=== PATIENT | male | born 1960 | race Caucasian/White ===

== ENCOUNTER 2025-01-15 02:42 | Day surgery (SDC) | payer OTHER, SELFPAY ==
[2025-01-04 13:42] VITALS: BMI 26.6
--- OUTSIDE RECORDS SUMMARY | 2025-01-15 02:44 | XMS_ITS | Clinical Summary ---
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 Gender Identity Not on file Sexual Orientation Not on file Plan of Treatment Health Maintenance Due Date Last Done Comments Hepatitis C Virus (HCV) Screening 1960 TdaP Immunization 1962 Cologuard 07/27/2007 Colonoscopy 07/27/2007 Colorectal Cancer Screening 07/27/2007 Immunochemical Fecal Occult Blood 07/27/2007 Pneumococcal Immunization (5 0+ years) (1 of 1 - PCV) 2012 Zoster Immunization (1 of 2) 2012 Influenza Immunization (#1) 2024 SARS-COV-2 Immunization (3 - 2024- season) 2024 07/15/2020, 06/11/2020 Respiratory Syncytial Virus (RSV) Immunization (Adult) (1 - 1-dose 75+ series) 2037 Hepatitis B Immunization Aged Out No longer eligible based on patient's age to complete this topic Human Papillomavirus (HPV) Immunization Aged Out No longer eligible b ased on patient's age to complete this topic Meningococcal Immunization (ACWY) Aged Out No longer eligible b ased on patient's age to complete this topic Rotavirus Immunization Aged Out No lo nger eligible based on patient's age to complete this topic
--- OUTSIDE RECORDS SUMMARY | 2025-01-15 02:44 | XMS_ITS | Clinical Summary ---
Author Organization [facility] [employer] logo Address [address] [place] [address] Care Team Providers Care Community Advocate Name Role Phone Kameron Yousif MD Primary Care Provider [phone] Source Comments [facility] [employer] logo,non-owned Affiliates and Associated Physician Practices is amultiple site organization consisting of ambulatory clinics and hospital sitesin [place], [place], [place] and [place]. This disclosure is being madepursuant to the Care Everywhere program and may not contain all information available regarding this patient. Last updated 17.[facility] [employer] Allergies Active Allergy Reactions Criticality Noted Date Comments Penicillins Other Low 01/06/2014 Unsure, told as a child not to take Medications * Be aware that medications may not be up to date on this document. Alwaysverify current medications with the patient. Multiple Vitamin Take by mouth DAILY. 04/30/2016 Active Florence-3 Fatty Acids (FISH OIL) 500 MG capsule Take by mouth DAILY. 04/30/2016 Active Active Problems Problem Noted Date Diagnosed Date Other seborrheic keratosis 05/06/2017 Other melanin hyperpigmentation 05/01/2016 Tinea pedis 05/01/2016 Melanocytic nevi of trunk 05/01/2016 Tinea unguium 05/01/2016 Other pruritus 05/06/2014 Other rosacea 05/06/2014 Immunizations Immunization Administration Dates Next Due TDAP, HISTORIC VACCINE 06/23/2021 Family History Medical History Relation Name Comments CAD (Coronary Artery Disease) Brother Diabetes - Type 2 Brother Cancer - Other Mother Cancer - Skin, Melanoma Neg Hx Cancer - Skin, Non Melanoma Neg Hx Eczema Neg Hx Psoriasis Neg Hx Relation Name Status Comments Brother Mother Social History Tobacco Use Types Packs/Day Years Used Date Smoking Tobacco: Never Smokeless Tobacco: Never Tobacco Cessation:Counseling Given: Not Answered Alcohol Use Standard Drinks/Week Comments Yes 12 (1 standard drink = 0.6 oz pu re alcohol) Sex and Gender Information Value Date Recorded Sex Assigned at Not on file 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 Gender Identity Not on file Sexual Orientation Not on file Last Filed Vital Signs Vital Sign Reading Time Taken Comments Blood Pressure 132/92 06/19/2022 3:47 PM CDT Pulse 62 06/19/2022 3:47 PM CDT Temperature - - Respiratory Rate - - Oxygen Saturation - - Inhaled Oxygen Concentration - - Weight 88.1 kg (194 lb 3.2 oz) 06/19/2022 3:47 P M CDT Height 175.3 cm (5' 9) 06/19/2022 3:47 PM CDT Body Mass Index 28.68 06/19/2022 3:47 PM CDT Plan of Treatment Health Maintenance Due Date Last Done Comments COLOGUARD (AGES 45-75) - COL ON CA SCREENING 1962 COLON MONITORING 1962 COLONOSCOPY - COLON CA SCREENING 1962 CT COLONOGRAPHY - COLON CA SCREENING 1962 Colorectal Cancer Screening 1962 FIT - COLON CA SCREENING 1962 FLEX SIG - COLON CA SCREENING 1962 LIPID TESTING 1962 HIV SCREENING 1977 HEPATITIS C SCREENING 07/21/1980 PNEUMOCOCCAL VACCINE 50+ (1 of 1 - PCV) 2012 ZOSTER VACCINE (1 of 2) 2012 DEPRESSION SCREENING 03/04/2024 COVID-19 VACCINE (3 - 2024-2 6 season) 2024 07/15/2020, 06/11/2020 INFLUENZA VACCINE (#1) 2024 DTAP/TDAP/TD VACCINES (2 - T d or Tdap) 06/24/2031 06/23/2021 Respiratory Syncytial Virus (RSV) Vaccine Pt: or over 60 yrs (1 - 1-dose 75+ series) 2037 HEPATITIS B VACCINE Aged Out No longe r eligible based on patient's age to complete this topic HIB VACCINE Aged Out No longer eligi ble based on patient's age to complete this topic HPV VACCINE Aged Out No longer eligi ble based on patient's age to complete this topic MENINGOCOCCAL (Group B) VACCINE SHARED DECISION-MAKING Aged Out No longer eligible based on patient's age to complete this topic MENINGOCOCCAL GROUPS A/C/Y/W VACCINE Aged Out No longer eligible b ased on patient's age to complete this topic Insurance [employer] Care Teams Community Advocate Relationship Specialty Start Date End Date Kameron oYusif MD [address] [place] [address] PCP - General 05/02/22
--- OUTSIDE RECORDS SUMMARY | 2025-01-15 02:44 | XMS_ITS | Clinical Summary ---
Author Organization [facility] Address [address] [address] Care Team Providers Care Rn Testing Name Role Phone Shayy Arriola MD Primary Care Provider + Allergies Active Allergy Reactions Criticality Noted Date Comments Penicillins Active Problems Problem Noted Date Diagnosed Date Chalazion 08/23/2010 Unspecified inflammation of eyelid 08/23/2010 Social History Tobacco Use Types Packs/Day Years Used Date Smoking Tobacco: Never Personal Safety Answer Date Recorded Getting School Help Needed Not on file 05/17 Sex and Gender Information Value Date Recorded Sex Assigned at Not on file 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 Gender Identity Not on file Sexual Orientation Not on file Plan of Treatment Health Maintenance Due Date Last Done Comments Colon Cancer Screening-Colonoscopy 1962 Depression Screening 1962 Hepatitis C Screening 1962 Prostate Cancer Screening-PSA 1962 Hepatitis B Screening 1980 Regular Well Visit/Exam 18-64 1980 Zoster Vaccine (1 of 2) 2012 Covid-19 Vaccine (3 - 2024-2 6 season) 2024 07/15/2020, 06/11/2020 Influenza Vaccine (#1) 2024 DTaP/Tdap/Td Vaccine (2 - Td or Tdap) 06/24/2031 06/23/2021 Pneumococcal vaccine <65 Aged Out No longer eligible based on patient's age to complete this topic Insurance [facility] [id number] [facility] [id number] Care Teams Rn Testing Relationship Specialty Start Date End Date Shayy Arriola MD PCP - General Hospice and Palliative Medicine 12/24/22
[2025-01-15 07:40] VITALS: BP 143/84; PULSE 64; RESP 20; TEMP 36.2; O2SAT 97; BMI 27.3
--- NOTE | 2025-01-15 07:50 | WPDANESEPPF ---
Anes - Initial Pre Proc Eval Procedure: Operation Date: 01/15/25 08:30 Proposed Procedures p Screening Colonoscopy - Mario Guajardo MD Date/Time: 01/15/25 07:50 Surgeon: Mario Guajardo MD Pre Op Diagnosis: Encounter for screening for malignant neoplasm of Patient Data Age: 64 Gender: M Height: 1.75 m Weight: 84.2 kg Last Vital Signs Temp 36.2 C L 01/15/25 07:40 Pulse 64 01/15/25 07:40 Resp 20 01/15/25 07:40 BP 143/84 H 01/15/25 07:40 Pulse Ox 97 01/15/25 07:40 O2 Del Method Room Air 01/15/25 07:40 Allergies Allergy/AdvReac Type Severity Reaction Status Date / Time erythromycin base Allergy Unknown Upset Verified 01/15/25 07:39 stomach Penicillins Allergy Unknown Pt does Verified 01/15/25 07:39 not remember reaction Home Medications ?Medication ?Instructions ?Recorded ?Confirmed ?Type multivitamin (Daily Multi-Vitamin 1 tablet PO DAILY 01/04/25 01/15/25 History tablet) omega 8-jek-zul-fish oil 1,000 mg 1 cap PO DAILY 01/04/25 01/15/25 History (120 mg-180 mg) capsule (Fish Oil) sodium,potassium,mag sulfates 17.5 See Rx Instructions PO .COMPLEX 01/04/25 Rx gram-3.13 gram-1.6 gram oral soln #354 mL (Suprep Bowel Prep Kit) Patient hx anesthesia problems: none Family hx anesthesia problems: none Results Review: All pre-operative results and documents have been reviewed as part of the pre-operative evaluation. [facility] Past Medical History Medical History (Updated 01/15/25 @ 07:51 by Juanito Grewal MD) Overweight Family History Family History Sibling Diabetes mellitus Hypertension Father Family history of alcoholism Mother Family history of malignant neoplasm of breast in first degree relative Social History Social History Smoking status: Never smoker Alcohol intake: current Drinks per week: 10 Substance use type: does not use Living arrangements: with family Spiritual care concerns: No Anes - Eval Final PreProcedure Day of Procedure 01/15/25 07:50 Patient weight: overweight Heart: regular rate and rhythm Lungs: clear to auscultation Airway: Mallampati scale class II Neurological: alert and oriented Last oral intake: >/= 8 hours ASA classification: II Emergent: no Anesthetic plan: proceed Anesthesia type and monitoring: general GIVS and standard monitoring Results Review: All pre-operative results and documents have been reviewed as part of the pre-operative evaluation. Informed Consent: The patient's anesthetic plan and its attendant risks and benefits were discussed with the patient/family/POA. Questions were solicited and answers provided to the satisfaction of the patient/family/POA.
[2025-01-15] MEDS: LACTATED RINGERS 1,000 ML 150 ML IV CONT (07:52)
--- NOTE | 2025-01-15 08:21 | PM.HPGS ---
History of Present Illness History of Present Illness Consent: Risks, benefits, and alternatives have been discussed and questions answered. Patient agrees to proceed with procedure. Chief complaint: Encounter for screening for malignant neoplasm of Narrative: Jayme Dillard is a 64 year old male with last colonoscopy in 2014 Review of Systems Review of Systems: All systems reviewed & are unremarkable except as noted in HPI and below PMFSH Past Medical History Medical History (Updated 01/15/25 @ 08:21 by Mario Guajardo MD) Colon cancer screening Overweight Family History Family History Sibling Diabetes mellitus Hypertension Father Family history of alcoholism Mother Family history of malignant neoplasm of breast in first degree relative Social History Social History Smoking status: Never smoker Alcohol intake: current Drinks per week: 10 Substance use type: does not use Living arrangements: with family Spiritual care concerns: No Meds Home Medications and Allergies Home Medications ?Medication ?Instructions ?Recorded ?Confirmed ?Type multivitamin (Daily Multi-Vitamin 1 tablet PO DAILY 01/04/25 01/15/25 History tablet) omega 1-agk-zjk-fish oil 1,000 mg 1 cap PO DAILY 01/04/25 01/15/25 History (120 mg-180 mg) capsule (Fish Oil) sodium,potassium,mag sulfates 17.5 See Rx Instructions PO .COMPLEX 01/04/25 Rx gram-3.13 gram-1.6 gram oral soln #354 mL (Suprep Bowel Prep Kit) Allergies Allergy/AdvReac Type Severity Reaction Status Date / Time erythromycin base Allergy Unknown Upset Verified 01/15/25 07:39 stomach Penicillins Allergy Unknown Pt does Verified 01/15/25 07:39 not remember reaction Vital Signs Vital Signs - 24 hr 01/15/25 07:40 Temperature 97.1 F L Pulse Rate 64 Respiratory Rate 20 Blood Pressure 143/84 H Pulse Oximetry 97 Oxygen Delivery Room Air Exam Const: General: comfortable and no acute distress HENMT: Face/Nose/Sinus: Normal nares present Eyes: General: appearance normal, both eyes and all related structures Neck: Neck: no JVD Resp: Auscultation: clear to auscultation bilaterally Cardio: Rate: regular rate Rhythm: regular rhythm GI: Inspection: non-distended GI Palp: Yes Soft to palpation Skin: General skin exam: normal color Extrem: General: normal to inspection Psych: Mental Status: mental status grossly normal Assessment and Plan Assessment and plan (1) Colon cancer screening: Code(s): Z12.11 - Encounter for screening for malignant neoplasm of colon Status: Acute Assessment and Plan: colonoscopy
[2025-01-15 08:32] VITALS: BP 105/62; PULSE 64; RESP 17; O2SAT 96
[2025-01-15 08:42] VITALS: BP 101/68; PULSE 63; RESP 16; O2SAT 96
[2025-01-15 08:52] VITALS: BP 121/93; PULSE 64; RESP 14; O2SAT 97
== END 2025-01-15 09:03 | disposition home or self-care (01) ==
PROVIDERS: PCP Physician Assistant; Visit Provider Internal Medicine Gastroenterology
PROC: 0DJD8ZZ Inspection of Lower Intestinal Tract, Via Natural or Artificial Opening Endoscopic (ICD-10-PCS; CPT 45378; principal; 2025-01-15 08:30)
DX: Z12.11 Encounter for screening for malignant neoplasm of colon (principal); K64.8 Other hemorrhoids; Z80.3 Family history of malignant neoplasm of breast
CPT/HCPCS: 45378; J2704; J7120